=== PATIENT | female | born 1940 | race Caucasian/White ===

== ENCOUNTER 2022-07-07 18:02 | Inpatient (IN) | payer MEDICARE, OTHER ==
[~2022-07-07] VITALS: Ht 157.5 cm; Wt 71.9 kg
[2022-07-07] MEDS ORDERED: LEVO75TA PO (18:20)
[2022-07-07] MEDS ORDERED: ELIQUIS PO (18:20)
[2022-07-07] MEDS ORDERED: AMIODARONE PO (18:21)
--- NOTE | 2022-07-07 18:21 | NUR ---
PT DOES NOT REMEMBER DOSES OF PT's HOME MEDICATION.
[2022-07-07] MEDS ORDERED: ASPIRIN 81 MG TAB.CHEW PO ONE (19:00)
--- NOTE | 2022-07-07 19:25 | NUR ---
change of shift report from Ruby GUILLEN
[2022-07-07 19:28] LABS: HEMATOCRIT 44.5 % (31.2-41.9); MEAN CORPUSCULAR HEMOGLOBIN 30.6 uug (24.7-32.8); MEAN CORPUSCULAR VOLUME 92.1 fL (75.5-95.3); PLATELET COUNT (AUTO) 148 K/uL (179-408)
[2022-07-07] MEDS ORDERED: ASPIRIN 81 MG TAB.CHEW ONE (19:29)
[2022-07-07 19:34] LABS: CARBON DIOXIDE 31 mmol/L (21-32); CHLORIDE 99 mmol/L (98-107); CREATININE 1.3 mg/dL (0.6-1.3); GLUCOSE 91 mg/dL (74-106); POTASSIUM 4.3 mmol/L (3.5-5.1); UREA NITROGEN, BLOOD 31 mg/dL (7-18)
[2022-07-07] MEDS ORDERED: FUROSEMIDE 40 MG/4 ML VIAL ONE (19:42)
[2022-07-07] MEDS ORDERED: FUROSEMIDE 40 MG/4 ML VIAL IV ONE (19:45)
[2022-07-07 19:47] LABS: ALANINE AMINOTRANSFERASE 48 U/L (14-59); ALKALINE PHOSPHATASE 48 U/L (50-136); ASPARTATE AMINOTRANSFERASE 29 U/L (15-37); BILIRUBIN,DIRECT 0.1 mg/dL (0.0-0.2); BILIRUBIN,TOTAL 0.3 mg/dL (0.2-1.0); TOTAL PROTEIN, SERUM 7.8 g/dL (6.4-8.2)
[2022-07-07 19:49] LABS: THYROID STIMULATING HORMONE 3.783 mIU/mL (0.358-3.740)
[2022-07-07 20:04] LABS: MAGNESIUM 1.9 mg/dL (1.8-2.4)
[2022-07-07] MEDS ORDERED: ACETAMINOPHEN 325 MG TABLET PO PRN (21:15)
[2022-07-07] MEDS ORDERED: REMEDY ESSENTIAL ZINC PASTE 113 GM TP PRN (21:15)
[2022-07-07] MEDS ORDERED: MAGNESIUM HYDROXIDE 30 ML LIQUID UDC PO PRN (21:15)
[2022-07-07] MEDS ORDERED: ONDANSETRON 4 MG/2 ML VIAL IV PRN (21:15)
--- NOTE | 2022-07-07 21:20 | NUR ---
Dr Brandt at bedside, MSE in progress
[2022-07-07] MEDS ORDERED: MAGNESIUM SULFATE/D5W 200 ML ONE (21:43)
[2022-07-07] MEDS: MAGNESIUM SULFATE/D5W 100 ML IV SCH ×2 (21:49→22:17)
[2022-07-07] MEDS ORDERED: CYANOCOBALAMIN 1000 MCG/ML VIAL IM ONE (22:15)
--- NOTE | 2022-07-07 22:43 | NUR ---
Patient is a/ox4, NAD noted. Patient is able to walk with a walker
--- NOTE | 2022-07-07 22:48 | NUR ---
Called for bed. Spoke with Shiloh GUILLEN. Will call me back for room number
--- NOTE | 2022-07-08 00:13 | NUR ---
report given to Shobha GUILLEN
[2022-07-08] MEDS ORDERED: ENOXAPARIN SODIUM 80 MG/0.8 ML DISP.SYRIN SQ SCH ×2 (00:31→11:00)
--- NOTE | 2022-07-08 00:38 | NUR ---
Pt. admitted to TELE room 318 , under care of Lamberto [employer] List completed Shobha GUILLEN aware of patient's arrival
[2022-07-08 00:45] VITALS: BP 127/58
--- NOTE | 2022-07-08 00:45 | NUR ---
Admitted from ER via w/c, alert and oriented x 3, Dx: NSTEMI. In no acute distress, denies chest pain. Sinus rhythm on tele w/ HR 66bpm. Oriented to BR, TV and call light. Routine admission care rendered, care plan initiated. Needs assessed and attended to. Call light within easy reach.
[2022-07-08] MEDS ORDERED: ENOXAPARIN SODIUM 80 MG/0.8 ML DISP.SYRIN SQ ONE (01:19)
[2022-07-08 04:00] VITALS: BP 136/64
[2022-07-08] MEDS ORDERED: LEVOTHYROXINE SODIUM 75 MCG TABLET PO SCH ×2 (07:00)
[2022-07-08 07:25] LABS: MEAN CORPUSCULAR HEMOGLOBIN 30.8 uug (24.7-32.8); MEAN CORPUSCULAR VOLUME 91.8 fL (75.5-95.3); PLATELET COUNT (AUTO) 159 K/uL (179-408)
[2022-07-08 07:40] LABS: CREATININE 1.3 mg/dL (0.6-1.3); MAGNESIUM 2.3 mg/dL (1.8-2.4); PHOSPHOROUS 4.7 mg/dL (2.5-4.9); POTASSIUM 4.1 mmol/L (3.5-5.1)
[2022-07-08] MEDS: AMIODARONE HCL 200 MG TABLET PO SCH (08:54)
[2022-07-08] MEDS: FUROSEMIDE 40 MG/4 ML VIAL IV SCH ×2 (08:54→20:23)
[2022-07-08] MEDS ORDERED: ENOXAPARIN SODIUM 40 MG/0.4 ML DISP.SYRIN SQ SCH (09:00)
[2022-07-08] MEDS ORDERED: APIXABAN 5 MG TABLET PO SCH (09:00)
[2022-07-08 11:09] VITALS: BP 143/61
[2022-07-08] MEDS ORDERED: MIRT7.5T10 PO (11:13)
[2022-07-08] MEDS ORDERED: CALC-1026 PO (11:13)
[2022-07-08] MEDS ORDERED: RAMI5CAP66 PO (11:13)
[2022-07-08] MEDS ORDERED: CITA20TA19 PO (11:13)
[2022-07-08] MEDS ORDERED: LEVO88TA5 PO (11:13)
[2022-07-08] MEDS: APIXABAN 5 MG TABLET PO SCH ×2 (11:34→20:23)
[2022-07-08] MEDS: LEVOTHYROXINE SODIUM 88 MCG TABLET PO SCH (11:34)
[2022-07-08] MEDS: CALCIUM CARBONATE 500 MG TABLET PO SCH (11:34)
[2022-07-08] MEDS ORDERED: MIRA50TA PO (12:15)
[2022-07-08] MEDS ORDERED: METH1TAB69 PO (12:18)
[2022-07-08] MEDS ORDERED: GEMTESA PO (12:18)
[2022-07-08 15:04] VITALS: BP 107/49
--- NOTE | 2022-07-08 19:30 | NUR ---
Received patient lying in bed. AAOx4. In no apparent distress. Denies any pain or SOB. AV pacing on tele with underlying SR, HR 60/min. Iv site on right FA intact and patent. Needs assessed and attended to. Safety measure initiated and call light within reached.
[2022-07-08 20:00] VITALS: BP 143/42
[2022-07-08] MEDS ORDERED: MIRTAZAPINE 15 MG TABLET PO SCH (21:00)
[2022-07-08] MEDS ORDERED: RAMIPRIL 5 MG CAPSULE PO SCH (21:00)
[2022-07-08] MEDS ORDERED: CITALOPRAM 20 MG TABLET PO SCH (21:00)
[2022-07-09 00:29] VITALS: BP 145/62
[2022-07-09 04:00] VITALS: BP 106/55
--- NOTE | 2022-07-09 05:31 | NUR ---
Slept intermittently. No complain of any pain or SOB. AV pacing on tele with underlying SR, HR 63/min. IV site on right FA intact and patent. Needs attended to and met. Safety measure maintained and call light within reached.
[2022-07-09] MEDS: LEVOTHYROXINE SODIUM 88 MCG TABLET PO SCH (06:07)
[2022-07-09 06:20] LABS: CARBON DIOXIDE 32 mmol/L (21-32); CHLORIDE 100 mmol/L (98-107); CREATININE 1.4 mg/dL (0.6-1.3); GLUCOSE 106 mg/dL (74-106); MAGNESIUM 2.1 mg/dL (1.8-2.4); PHOSPHOROUS 4.6 mg/dL (2.5-4.9); POTASSIUM 3.9 mmol/L (3.5-5.1); UREA NITROGEN, BLOOD 32 mg/dL (7-18)
[2022-07-09 06:57] LABS: HEMATOCRIT 48.4 % (31.2-41.9); MEAN CORPUSCULAR HEMOGLOBIN 30.2 uug (24.7-32.8); MEAN CORPUSCULAR VOLUME 91.7 fL (75.5-95.3); PLATELET COUNT (AUTO) 171 K/uL (179-408)
--- NOTE | 2022-07-09 07:45 | NUR ---
Awake, alert, oriented x 4. Room air, not in distress. Tele V pacing with periods of SR
[2022-07-09] MEDS: FUROSEMIDE 40 MG/4 ML VIAL IV SCH (08:28)
[2022-07-09] MEDS: AMIODARONE HCL 200 MG TABLET PO SCH (08:28)
[2022-07-09] MEDS: CALCIUM CARBONATE 500 MG TABLET PO SCH (08:28)
[2022-07-09] MEDS: APIXABAN 5 MG TABLET PO SCH (08:29)
[2022-07-09] MEDS ORDERED: FURO-151 PO (11:33)
[2022-07-09 11:34] VITALS: BP 97/52
[2022-07-09] MEDS ORDERED: INFLUENZA VACCINE 2022-2023 0.5 ML DISP.SYRIN IM ONE (12:15)
--- NOTE | 2022-07-09 14:25 | NUR ---
With discharge order to home. Saline lock removed. Tele removed. DC instructions given, verbalized understanding. Went home per ambulatory, per request, in fair condition, not in distress, afebrile.
== END 2022-07-09 14:15 | disposition home or self-care (01) | DRG 291 ==
LOC: ER 18:02 → TELE3 20:30
PROVIDERS: ADMIT Nurse Practitioner Acute Care; ATTEND Nurse Practitioner Acute Care
DX: I11.0 Hypertensive heart disease with heart failure (principal); I50.23 Acute on chronic systolic (congestive) heart failure; E87.1 Hypo-osmolality and hyponatremia; F03.94 Unspecified dementia, unspecified severity, with anxiety; I48.0 Paroxysmal atrial fibrillation; I25.10 Atherosclerotic heart disease of native coronary artery without angina pectoris; I42.9 Cardiomyopathy, unspecified; Z79.01 Long term (current) use of anticoagulants; E03.9 Hypothyroidism, unspecified; Z95.810 Presence of automatic (implantable) cardiac defibrillator; F41.9 Anxiety disorder, unspecified; F09 Unspecified mental disorder due to known physiological condition; F03.90 Unspecified dementia, unspecified severity, without behavioral disturbance, psychotic disturbance, mood disturbance, and anxiety; I10 Essential (primary) hypertension; Z79.890 Hormone replacement therapy; Z95.5 Presence of coronary angioplasty implant and graft
CPT/HCPCS: 36415; 71045; 83605; 83735; 84100; 84443; 84484; 85025; 85730; 90686; 93005; 93307; G0378; J1650; J1940; J3475